=== PATIENT | female | born 1955 | race Caucasian/White ===

== ENCOUNTER 2025-02-19 04:17 | Inpatient (IN) | payer OTHER ==
[2025-02-19] VITALS (71 sets, daily range): BP systolic 44–218; BP diastolic 17–118
[~2025-02-19] VITALS: Ht 152.4 cm; Wt 89.8 kg
[2025-02-19] MEDS ORDERED: SODIUM CHLORIDE 0.9% 1,000 ML IV SCH ×2 (04:30→05:15)
[2025-02-19 04:42] LABS: ABG O2 SATURATION 88.6 % (94.0-98.0); ARTERIAL BLOOD GAS PH 7.497 (7.350-7.450); ARTERIAL BLOOD GAS PO2 64.7 mmHg (83.0-108.0)
[2025-02-19 04:44] LABS: ABG BASE EXCESS 3.6 mmol/L (-2.0-3.0)
[2025-02-19 04:50] LABS: BASO % 0.3 % (0.0-1.0); EOS % 0.5 % (1.0-4.0); HEMATOCRIT 31.8 % (37.0-47.0); MEAN CELL VOLUME 101.6 fl (81.0-99.0); MEAN CORPUSCULAR HGB 31.3 pg (27.0-31.0); MEAN CORPUSCULAR HGB CONC 30.8 g/dl (33.0-37.0); MEAN PLATELET VOLUME 11.3 fl (9.6-12.3); MONO # 0.8 10*3/uL (0.1-1.0); MONO % 8.8 % (3.0-9.0); NEUT # 6.2 10*3/uL (2.3-7.9); PLATELET COUNT AUTOMATED 71 10*3/uL (130-400); RED BLOOD COUNT 3.13 10*6/uL (4.10-5.10); RED CELL DISTRI WIDTH 21.1 % (0-14.5); WHITE BLOOD COUNT 8.9 10*3/uL (4.8-10.8)
[2025-02-19] MEDS ORDERED: PROPOFOL 100 ML IV ONE (04:52)
[2025-02-19 05:13] LABS: ALKALINE PHOSPHATASE 51 U/L (46-116); BUN 30 mg/dl (9-23); CHLORIDE 97 mmol/L (98-107); POTASSIUM 3.5 mmol/L (3.4-5.1); TOTAL PROTEIN 5.4 gm/dL (6.0-8.0)
[2025-02-19 05:15] LABS: SGPT/ALT < 7 U/L (5-49)
[2025-02-19] MEDS ORDERED: Piperacillin Sodium/Tazobact 50 ML IV ONE (05:35)
[2025-02-19] MEDS ORDERED: Vancomycin Hydrochloride 250 ML IV ONE (05:35)
[2025-02-19] MEDS ORDERED: NOREPINEPHRINE BITARTRATE/D5W 250 ML IV SCH ×2 (06:40→09:30)
[2025-02-19] MEDS ORDERED: Hydrocortisone Sodium Succin 100 MG/2 ML VIAL IV ONE (07:10)
[2025-02-19] MEDS ORDERED: FLUDROCORTISONE ACETATE 0.1 MG TAB PO ONE (07:10)
[2025-02-19] MEDS ORDERED: ETOMIDATE 20 MG/10 ML VIAL IV ONE (07:31)
[2025-02-19] MEDS ORDERED: ROCURONIUM BROMIDE 50 MG/5 ML SYRINGE IV ONE (07:31)
[2025-02-19] MEDS ORDERED: BISACODYL 10 MG SUPP R PRN (07:55)
[2025-02-19] MEDS ORDERED: Ondansetron Hydrochloride 4 MG/2 ML VIAL IV PRN (07:55)
[2025-02-19] MEDS ORDERED: ACETAMINOPHEN 325 MG TAB PO PRN (07:55)
[2025-02-19] MEDS ORDERED: TEMAZEPAM 15 MG CAP PO PRN (07:55)
[2025-02-19] MEDS ORDERED: Magnesium Hydroxide 30 ML UDC PO PRN (07:55)
[2025-02-19] MEDS ORDERED: BISACODYL 5 MG TAB PO PRN (07:55)
[2025-02-19] MEDS ORDERED: ACETAMINOPHEN 650 MG SUPP R PRN (07:55)
[2025-02-19] MEDS ORDERED: Vancomycin Hydrochloride 1,000 MG in SODIUM CHLORIDE 0.9% 250 ML IV SCH (08:05)
[2025-02-19] MEDS ORDERED: MAGNESIUM SULFATE 50 ML IV ONE (08:05)
[2025-02-19] MEDS ORDERED: Heparin Sodium/Sodium Chlori 500 ML IV ONE (09:43)
[2025-02-19] MEDS ORDERED: Enoxaparin Sodium 40 MG/0.4 ML SYR SC SCH (10:00)
[2025-02-19] MEDS ORDERED: Hydrocortisone Sodium Succin 100 MG/2 ML VIAL IV SCH ×2 (12:00→16:00)
[2025-02-19] MEDS ORDERED: Piperacillin Sodium/Tazobact 2.25 GM in SODIUM CHLORIDE 0.9% 50 ML IV SCH (12:00)
[2025-02-19] MEDS ORDERED: Midodrine Hydrochloride 5 MG TAB PO SCH (12:00)
[2025-02-19] MEDS ORDERED: VASOPRESSIN 100 ML IV SCH (12:30)
[2025-02-19 13:27] LABS: BILIRUBIN Negative (Negative); BLOOD Negative (Negative); CLARITY Clear (Clear); COLOR Dark Yellow (Yellow); GLUCOSE Negative (Negative); KETONE Trace (Negative); LEUKO ESTERASE Negative (Negative); NITRITE Negative (Negative)
[2025-02-19 13:37] LABS: BACTERIA 1+; CALCIUM OXALATE CRYSTALS Trace; MUCOUS TRACE; RBC 0-2 rbc/hpf (0-2); WBC 0-2 wbc/hpf (0-5)
[2025-02-19] MEDS ORDERED: PROTONIX40 MG PO (13:54)
[2025-02-19] MEDS ORDERED: SINGULAIR10 M1 PO (13:54)
[2025-02-19] MEDS ORDERED: ALLEGRA ALLERG180 M2 PO (13:55)
[2025-02-19] MEDS ORDERED: LEXAPRO10 MG PO (13:55)
[2025-02-19] MEDS ORDERED: NEURONTIN800 MG PO (13:56)
[2025-02-19] MEDS ORDERED: VITAMIN C1000 M5 PO (13:56)
[2025-02-19] MEDS ORDERED: MIRABEGRON ER50 MG PO (13:57)
[2025-02-19] MEDS ORDERED: WIXELA 250-501 EACH INH (13:58)
[2025-02-19] MEDS ORDERED: NOREPINEPHRINE BITARTRATE IV SCH (14:00)
[2025-02-19] MEDS ORDERED: DEXTROSE 5% IV SCH (14:00)
[2025-02-19] MEDS ORDERED: CELECOXIB200 M1 PO (14:00)
[2025-02-19] MEDS ORDERED: PLAQUENIL200 MG PO (14:01)
[2025-02-19 14:29] LABS: ABG O2 SATURATION 97.2 % (94.0-98.0); ARTERIAL BLOOD GAS PH 7.35 (7.350-7.450); ARTERIAL BLOOD GAS PO2 105.2 mmHg (83.0-108.0)
[2025-02-19 14:30] LABS: ABG BASE EXCESS -5.2 mmol/L (-2.0-3.0)
[2025-02-19] MEDS ORDERED: AZITHROMYCIN 250 ML IV SCH (14:30)
[2025-02-19] MEDS ORDERED: DEXTROSE 50% 25 GM/50 ML VIAL IV ONE ×2 (14:50→20:10)
[2025-02-19] MEDS ORDERED: Midazolam Hydrochloride 5 MG/5 ML VIAL ONE (15:32)
[2025-02-19] MEDS ORDERED: EPINEPHrine IN 0.9 % SOD CHLOR 250 ML IV SCH (16:05)
[2025-02-19] MEDS ORDERED: dexmedeTOMIDine IN 0.9 % NACL 100 ML IV SCH (19:20)
[2025-02-19] MEDS ORDERED: SODIUM CHLORIDE IV SCH (20:30)
[2025-02-19] MEDS ORDERED: EPINEPHRINE HYDROCHLORIDE IV SCH (20:30)
[2025-02-20] VITALS (96 sets, daily range): BP systolic 81–148; BP diastolic 37–81
[2025-02-20] MEDS ORDERED: [UNRECOGNIZED DRUG - OTHER] IV SCH (06:00)
[2025-02-20] MEDS ORDERED: methylPREDNISolone sod succ 40 MG VIAL IV SCH (06:00)
[2025-02-20] MEDS ORDERED: Pantoprazole Sodium 40 MG VIAL IV SCH (06:00)
[2025-02-20 06:14] LABS: ACT PARTIAL THROMBO TIME 47.6 SECONDS (20.0-32.1)
[2025-02-20 06:29] LABS: ALKALINE PHOSPHATASE 108 U/L (46-116); CHLORIDE 96 mmol/L (98-107); CHOLESTEROL 106 mg/dL (<200); FREE T4 0.18 ng/dl (0.89-1.76); HEMATOCRIT 32.5 % (37.0-47.0); MEAN CELL VOLUME 100.6 fl (81.0-99.0); MEAN CORPUSCULAR HGB 31.3 pg (27.0-31.0); MEAN CORPUSCULAR HGB CONC 31.1 g/dl (33.0-37.0); MEAN PLATELET VOLUME 11.2 fl (9.6-12.3); NUCLEATED RED BLOOD CELL 0.1 % (0.0-0.0); POTASSIUM 3.9 mmol/L (3.4-5.1); RED BLOOD COUNT 3.23 10*6/uL (4.10-5.10); RED CELL DISTRI WIDTH 21.1 % (0-14.5); SGPT/ALT 125 U/L (5-49); TRIGLYCERIDES 229 mg/dl (<150)
[2025-02-20 06:30] LABS: MANUAL DIFF REFLEX YES
[2025-02-20 06:31] LABS: PLATELET COUNT AUTOMATED 95 10*3/uL (130-400)
[2025-02-20 06:32] LABS: WHITE BLOOD COUNT 37.6 10*3/uL (4.8-10.8)
[2025-02-20 06:49] LABS: BUN 46 mg/dl (9-23); LDL CHOLESTEROL 55 mg/dL (9-159)
[2025-02-20 06:50] LABS: DOHLE BODIES FEW; OVALOCYTES FEW; PLATELET SUFFICIENCY LOW (NORMAL); POLYCHROMASIA SLIGHT; TOTAL CELLS COUNTED 100 #CELLS; TOXIC GRANULATION SLIGHT; VACUOLATION OF NEUTROPHILS SLIGHT
[2025-02-20 07:45] LABS: VITAMIN D, 25-HYDROXY 5.8 ng/mL (30-100)
[2025-02-20 07:57] LABS: ABG O2 SATURATION 99.9 % (94.0-98.0); ARTERIAL BLOOD GAS PH 7.338 (7.350-7.450); ARTERIAL BLOOD GAS PO2 197.1 mmHg (83.0-108.0)
[2025-02-20] MEDS ORDERED: Vancomycin Hydrochloride 1,000 MG in SODIUM CHLORIDE 0.9% 250 ML IV SCH (08:00)
[2025-02-20] MEDS ORDERED: Hydroxychloroquine Sulfate 200 MG TAB PO SCH (10:00)
[2025-02-20] MEDS ORDERED: ESCITALOPRAM OXALATE 10 MG TAB PO SCH (10:00)
[2025-02-20] MEDS ORDERED: FLUDROCORTISONE ACETATE 0.1 MG TAB PO SCH (10:00)
[2025-02-20] MEDS ORDERED: Enoxaparin Sodium 30 MG/0.3 ML SYR SC SCH (10:00)
[2025-02-20] MEDS ORDERED: DEXTROSE 50% 25 GM/50 ML VIAL IV PRN (14:15)
[2025-02-20] MEDS ORDERED: Heparin Sodium/Sodium Chlori 1,000 UNITS/500 ML BAG IV SCH (15:40)
[2025-02-20] MEDS ORDERED: ACETAMINOPHEN 70 ML IV ONE (21:20)
[2025-02-21] VITALS (91 sets, daily range): BP systolic 77–139; BP diastolic 45–68
[2025-02-21 04:50] LABS: HEMATOCRIT 25.5 % (37.0-47.0); MANUAL DIFF REFLEX YES; MEAN CORPUSCULAR HGB 31.3 pg (27.0-31.0); MEAN CORPUSCULAR HGB CONC 32.2 g/dl (33.0-37.0); MEAN PLATELET VOLUME 10.9 fl (9.6-12.3); RED BLOOD COUNT 2.62 10*6/uL (4.10-5.10); RED CELL DISTRI WIDTH 21.1 % (0-14.5); WHITE BLOOD COUNT 24.4 10*3/uL (4.8-10.8)
[2025-02-21 04:51] LABS: MEAN CELL VOLUME 97.3 fl (81.0-99.0); PLATELET COUNT AUTOMATED 65 10*3/uL (130-400)
[2025-02-21 05:12] LABS: POTASSIUM 4.2 mmol/L (3.4-5.1); TOTAL PROTEIN 4.4 gm/dL (6.0-8.0)
[2025-02-21 05:24] LABS: TOTAL CELLS COUNTED 100 #CELLS
[2025-02-21 05:25] LABS: OVALOCYTES FEW; PLATELET SUFFICIENCY LOW (NORMAL); POLYCHROMASIA SLIGHT
[2025-02-21 07:50] LABS: ABG BASE EXCESS -3.1 mmol/L (-2.0-3.0); ABG O2 SATURATION 98.8 % (94.0-98.0); ARTERIAL BLOOD GAS PH 7.418 (7.350-7.450); ARTERIAL BLOOD GAS PO2 122.8 mmHg (83.0-108.0)
[2025-02-21] MEDS ORDERED: Cefepime Hydrochloride 1 GM in SODIUM CHLORIDE 0.9% 50 ML IV SCH (10:00)
[2025-02-21 10:07] LABS: HEMOGOLBIN A1C 4.2 % (4.8-5.6)
[2025-02-21] MEDS ORDERED: ALBUMIN 25% 100 ML IV ONE ×2 (10:45→22:45)
[2025-02-21 11:04] LABS: BILIRUBIN Negative (Negative); BLOOD Negative (Negative); CLARITY Cloudy (Clear); COLOR Dark Yellow (Yellow); GLUCOSE Negative (Negative); KETONE Negative (Negative); LEUKO ESTERASE Trace (Negative); NITRITE Negative (Negative); PH 5.5 (4.5-8.0); SPECIFIC GRAVITY 1.015 (1.001-1.030)
[2025-02-21 11:41] LABS: HYALINE CAST 0-2
[2025-02-21 11:42] LABS: BACTERIA 3+
[2025-02-21] MEDS ORDERED: Midodrine Hydrochloride 5 MG TAB PO SCH (14:00)
[2025-02-21] MEDS ORDERED: Heparin Sodium/Sodium Chlori 1,000 UNITS/500 ML BAG IV SCH (17:05)
[2025-02-22] VITALS (90 sets, daily range): BP systolic 88–121; BP diastolic 42–61
[2025-02-22] MEDS ORDERED: Hydrocortisone Sodium Succin 100 MG/2 ML VIAL IV SCH
[2025-02-22 05:50] LABS: FREE T4 0.14 ng/dl (0.89-1.76); POTASSIUM 3.8 mmol/L (3.4-5.1); TOTAL PROTEIN 4.8 gm/dL (6.0-8.0)
[2025-02-22 06:07] LABS: MEAN CELL VOLUME 96.9 fl (81.0-99.0); MEAN CORPUSCULAR HGB 30.8 pg (27.0-31.0); MEAN CORPUSCULAR HGB CONC 31.8 g/dl (33.0-37.0); MEAN PLATELET VOLUME 11.1 fl (9.6-12.3); PLATELET COUNT AUTOMATED 49 10*3/uL (130-400); RED BLOOD COUNT 2.27 10*6/uL (4.10-5.10); RED CELL DISTRI WIDTH 20.7 % (0-14.5); WHITE BLOOD COUNT 23.1 10*3/uL (4.8-10.8)
[2025-02-22 06:59] LABS: MANUAL DIFF REFLEX YES
[2025-02-22 07:01] LABS: TOTAL CELLS COUNTED 100 #CELLS
[2025-02-22 07:03] LABS: PLATELET SUFFICIENCY LOW (NORMAL); POLYCHROMASIA SLIGHT; SCHISTOCYTES FEW; TOXIC GRANULATION SLIGHT
[2025-02-22 08:10] LABS: ABG O2 SATURATION 99.1 % (94.0-98.0); ARTERIAL BLOOD GAS PH 7.426 (7.350-7.450)
[2025-02-22 08:11] LABS: ABG BASE EXCESS -2.4 mmol/L (-2.0-3.0)
[2025-02-22] MEDS ORDERED: VANCOMYCIN/WATER FOR INJ (PEG) 300 ML IV SCH (10:00)
[2025-02-22 11:47] LABS: ABG BASE EXCESS 0.6 mmol/L (-2.0-3.0); ARTERIAL BLOOD GAS PH 7.44 (7.350-7.450); ARTERIAL BLOOD GAS PO2 94.3 mmHg (83.0-108.0)
[2025-02-22] MEDS ORDERED: SODIUM CHLORIDE 0.9% 500 ML IV ONE (14:30)
[2025-02-22] MEDS ORDERED: DICLOFENAC SODIUM 100 GM TUBE T SCH (22:00)
[2025-02-23] VITALS (96 sets, daily range): BP systolic 97–127; BP diastolic 43–62
[2025-02-23] MEDS ORDERED: hydrOXYzine pamoate 25 MG CAP PO ONE (03:25)
[2025-02-23 04:27] LABS: MEAN CELL VOLUME 95.3 fl (81.0-99.0); RED CELL DISTRI WIDTH 20.9 % (0-14.5)
[2025-02-23 04:34] LABS: HEMATOCRIT 26.4 % (37.0-47.0); MEAN CORPUSCULAR HGB 30.3 pg (27.0-31.0); MEAN CORPUSCULAR HGB CONC 31.8 g/dl (33.0-37.0); MEAN PLATELET VOLUME 12.6 fl (9.6-12.3); NUCLEATED RED BLOOD CELL 0.1 % (0.0-0.0); PLATELET COUNT AUTOMATED 41 10*3/uL (130-400); RED BLOOD COUNT 2.77 10*6/uL (4.10-5.10); WHITE BLOOD COUNT 19.7 10*3/uL (4.8-10.8)
[2025-02-23 05:00] LABS: ALKALINE PHOSPHATASE 110 U/L (46-116); BUN 49 mg/dl (9-23); CHLORIDE 101 mmol/L (98-107); POTASSIUM 3.6 mmol/L (3.4-5.1); SGPT/ALT 129 U/L (5-49); TOTAL PROTEIN 4.7 gm/dL (6.0-8.0)
[2025-02-23 05:02] LABS: MANUAL DIFF REFLEX YES
[2025-02-23 05:04] LABS: PLATELET SUFFICIENCY LOW (NORMAL); TOTAL CELLS COUNTED 100 #CELLS
[2025-02-23] MEDS ORDERED: Cefepime Hydrochloride 2 GM in SODIUM CHLORIDE 0.9% 50 ML IV SCH (10:10)
[2025-02-24] VITALS (26 sets, daily range): BP systolic 98–124; BP diastolic 46–64
[2025-02-24 06:11] LABS: HEMATOCRIT 26.8 % (37.0-47.0); MEAN CORPUSCULAR HGB 30.5 pg (27.0-31.0); MEAN PLATELET VOLUME 11.6 fl (9.6-12.3); RED BLOOD COUNT 2.72 10*6/uL (4.10-5.10); WHITE BLOOD COUNT 6.6 10*3/uL (4.8-10.8)
[2025-02-24 06:36] LABS: MEAN CELL VOLUME 98.5 fl (81.0-99.0)
[2025-02-24 06:50] LABS: PLATELET COUNT AUTOMATED 32 10*3/uL (130-400)
[2025-02-24 06:51] LABS: MANUAL DIFF REFLEX YES
[2025-02-24 06:57] LABS: TOTAL CELLS COUNTED 100 #CELLS
[2025-02-24 06:58] LABS: POLYCHROMASIA SLIGHT
[2025-02-24 07:00] LABS: PLATELET SUFFICIENCY LOW (NORMAL)
[2025-02-24 07:01] LABS: ALKALINE PHOSPHATASE 84 U/L (46-116); BUN 43 mg/dl (9-23); CHLORIDE 105 mmol/L (98-107); FREE T4 0.18 ng/dl (0.89-1.76); POTASSIUM 3.4 mmol/L (3.4-5.1); SGPT/ALT 73 U/L (5-49); TOTAL PROTEIN 4.5 gm/dL (6.0-8.0)
[2025-02-24] MEDS ORDERED: DISPOSABLE IV SCH (08:00)
[2025-02-24] MEDS ORDERED: [UNRECOGNIZED DRUG - OTHER] IV SCH (08:00)
[2025-02-24] MEDS ORDERED: Enoxaparin Sodium 40 MG/0.4 ML SYR SC SCH (10:00)
[2025-02-25] VITALS: BP 95/58
[2025-02-25] MEDS ORDERED: CEFDINIR300 MG PO (02:03)
[2025-02-25 04:00] VITALS: BP 111/53
[2025-02-25 04:37] LABS: MEAN CELL VOLUME 98.6 fl (81.0-99.0); MEAN CORPUSCULAR HGB CONC 31.4 g/dl (33.0-37.0); MEAN PLATELET VOLUME 12.2 fl (9.6-12.3); NUCLEATED RED BLOOD CELL 0.3 % (0.0-0.0); PLATELET COUNT AUTOMATED 34 10*3/uL (130-400); RED BLOOD COUNT 2.94 10*6/uL (4.10-5.10); RED CELL DISTRI WIDTH 20.9 % (0-14.5); WHITE BLOOD COUNT 7.6 10*3/uL (4.8-10.8)
[2025-02-25 04:58] LABS: ALKALINE PHOSPHATASE 90 U/L (46-116); BUN 47 mg/dl (9-23); CHLORIDE 105 mmol/L (98-107); POTASSIUM 3.4 mmol/L (3.4-5.1); SGPT/ALT 49 U/L (5-49); TOTAL PROTEIN 4.5 gm/dL (6.0-8.0)
[2025-02-25 05:22] LABS: MANUAL DIFF REFLEX YES
[2025-02-25 05:26] LABS: PLATELET SUFFICIENCY LOW (NORMAL); TOTAL CELLS COUNTED 100 #CELLS
[2025-02-25 05:27] LABS: OVALOCYTES FEW; POLYCHROMASIA SLIGHT
[2025-02-25 08:00] VITALS: BP 115/58
[2025-02-25 12:00] VITALS: BP 113/63
[2025-02-25] MEDS ORDERED: SODIUM CHLORIDE 0.9% 1,000 ML IV SCH (12:05)
[2025-02-25 16:00] VITALS: BP 116/59
[2025-02-25 19:57] VITALS: BP 118/65
[2025-02-26] VITALS: BP 112/56
[2025-02-26 04:00] VITALS: BP 107/52
[2025-02-26 05:58] LABS: POTASSIUM 3.6 mmol/L (3.4-5.1); TOTAL PROTEIN 4.5 gm/dL (6.0-8.0)
[2025-02-26 06:12] LABS: HEMATOCRIT 31.8 % (37.0-47.0); MEAN CORPUSCULAR HGB 30.8 pg (27.0-31.0); MEAN CORPUSCULAR HGB CONC 30.8 g/dl (33.0-37.0); MEAN PLATELET VOLUME 13.6 fl (9.6-12.3); NUCLEATED RED BLOOD CELL 0.2 % (0.0-0.0); PLATELET COUNT AUTOMATED 37 10*3/uL (130-400); RED BLOOD COUNT 3.18 10*6/uL (4.10-5.10); WHITE BLOOD COUNT 8.1 10*3/uL (4.8-10.8)
[2025-02-26 07:32] LABS: MANUAL DIFF REFLEX YES
[2025-02-26 07:34] LABS: PLATELET SUFFICIENCY LOW (NORMAL); POLYCHROMASIA SLIGHT; TOTAL CELLS COUNTED 100 #CELLS; TOXIC GRANULATION SLIGHT
[2025-02-26 07:35] LABS: OVALOCYTES FEW
[2025-02-26 08:00] VITALS: BP 129/68
[2025-02-26 12:00] VITALS: BP 121/60
[2025-02-26] MEDS ORDERED: SODIUM CHLORIDE 0.9% 1,000 ML IV SCH (13:00)
[2025-02-26] MEDS ORDERED: ALBUMIN 5% 250 ML IV ONE (14:00)
[2025-02-26 16:00] VITALS: BP 105/50
[2025-02-26 20:00] VITALS: BP 115/61
[2025-02-27] VITALS: BP 114/80
[2025-02-27 04:00] VITALS: BP 122/58
[2025-02-27 05:29] LABS: POTASSIUM 3.7 mmol/L (3.4-5.1); TOTAL PROTEIN 4.4 gm/dL (6.0-8.0)
[2025-02-27] MEDS ORDERED: ALBUMIN 5% 250 ML IV ONE (06:00)
[2025-02-27 06:22] LABS: HEMATOCRIT 33.2 % (37.0-47.0); MEAN CELL VOLUME 99.4 fl (81.0-99.0); MEAN CORPUSCULAR HGB 30.5 pg (27.0-31.0); MEAN CORPUSCULAR HGB CONC 30.7 g/dl (33.0-37.0); NUCLEATED RED BLOOD CELL 0.2 % (0.0-0.0); PLATELET COUNT AUTOMATED 39 10*3/uL (130-400); RED BLOOD COUNT 3.34 10*6/uL (4.10-5.10); RED CELL DISTRI WIDTH 21.4 % (0-14.5); WHITE BLOOD COUNT 10.8 10*3/uL (4.8-10.8)
[2025-02-27 06:54] LABS: MANUAL DIFF REFLEX YES
[2025-02-27 07:00] LABS: PLATELET SUFFICIENCY LOW (NORMAL); TOTAL CELLS COUNTED 100 #CELLS
[2025-02-27 07:01] LABS: TOXIC GRANULATION MODERATE; VACUOLATION OF NEUTROPHILS SLIGHT
[2025-02-27 08:00] VITALS: BP 141/78
[2025-02-27 11:58] VITALS: BP 137/72
[2025-02-27 16:00] VITALS: BP 127/74
[2025-02-27] MEDS ORDERED: SODIUM CHLORIDE 0.9% 1,000 ML IV ONE (16:55)
[2025-02-27 20:00] VITALS: BP 139/64
[2025-02-28] VITALS: BP 131/57
[2025-02-28 05:07] LABS: POTASSIUM 3.6 mmol/L (3.4-5.1); TOTAL PROTEIN 4.3 gm/dL (6.0-8.0)
[2025-02-28 06:05] LABS: HEMATOCRIT 33.8 % (37.0-47.0); MEAN CELL VOLUME 100.3 fl (81.0-99.0); MEAN CORPUSCULAR HGB 30.6 pg (27.0-31.0); MEAN CORPUSCULAR HGB CONC 30.5 g/dl (33.0-37.0); MEAN PLATELET VOLUME 13.1 fl (9.6-12.3); NUCLEATED RED BLOOD CELL 0.2 % (0.0-0.0); PLATELET COUNT AUTOMATED 40 10*3/uL (130-400); RED BLOOD COUNT 3.37 10*6/uL (4.10-5.10); RED CELL DISTRI WIDTH 22.3 % (0-14.5); WHITE BLOOD COUNT 13.3 10*3/uL (4.8-10.8)
[2025-02-28 07:01] LABS: MANUAL DIFF REFLEX YES
[2025-02-28 07:03] LABS: TOTAL CELLS COUNTED 100 #CELLS
[2025-02-28 07:05] LABS: PLATELET SUFFICIENCY LOW (NORMAL); TOXIC GRANULATION SLIGHT
[2025-02-28 08:00] VITALS: BP 124/67
[2025-02-28] MEDS ORDERED: Albuterol Sulf/Ipratropium 3 ML VIAL NEB ONE (08:30)
[2025-02-28] MEDS ORDERED: Water, Sterile 10 ML VIAL IV SCH (08:51)
[2025-02-28 10:49] LABS: ABG BASE EXCESS -4.2 mmol/L (-2.0-3.0); ABG O2 SATURATION 90.6 % (94.0-98.0); ARTERIAL BLOOD GAS PH 7.477 (7.350-7.450); ARTERIAL BLOOD GAS PO2 57.2 mmHg (83.0-108.0)
[2025-02-28 12:00] VITALS: BP 104/59
[2025-02-28] MEDS ORDERED: Heparin Sodium/Sodium Chlori 500 ML IV ONE (15:09)
[2025-02-28 16:00] VITALS: BP 94/54
[2025-02-28 17:07] LABS: A/G RATIO 0.8 (0.7-1.7); ALPHA-1-GLOBULIN 0.2 g/dL (0.0-0.4); ALPHA-2-GLOBULIN 0.5 g/dL (0.4-1.0); BETA GLOBULIN 0.7 g/dL (0.7-1.3); GLOBULIN, TOTAL 2.5 g/dL (2.2-3.9)
[2025-02-28] MEDS ORDERED: Thiamine 200 MG/2 ML VIAL IV SCH ×2 (18:00→18:13)
[2025-02-28 23:00] VITALS: BP 105/60
[2025-02-28] MEDS ORDERED: cefTRIAXone Sodium 2 GM in SYRINGE INFUSION 20 ML IV SCH (23:25)
[2025-03-01 03:00] VITALS: BP 115/64
[2025-03-01 06:30] LABS: POTASSIUM 4.2 mmol/L (3.4-5.1); TOTAL PROTEIN 4.2 gm/dL (6.0-8.0)
[2025-03-01 06:35] LABS: HEMATOCRIT 34.8 % (37.0-47.0); MEAN CELL VOLUME 101.5 fl (81.0-99.0); MEAN CORPUSCULAR HGB 31.2 pg (27.0-31.0); MEAN CORPUSCULAR HGB CONC 30.7 g/dl (33.0-37.0); NUCLEATED RED BLOOD CELL 0.1 10*3/uL (0.0-0.0); NUCLEATED RED BLOOD CELL 0.3 % (0.0-0.0); PLATELET COUNT AUTOMATED 40 10*3/uL (130-400); RED BLOOD COUNT 3.43 10*6/uL (4.10-5.10); RED CELL DISTRI WIDTH 23.1 % (0-14.5); WHITE BLOOD COUNT 17.9 10*3/uL (4.8-10.8)
[2025-03-01 06:40] LABS: MANUAL DIFF REFLEX YES
[2025-03-01 07:05] LABS: BASOPHILS 1 % (0-1); OVALOCYTES FEW; POLYCHROMASIA SLIGHT; ROULEAUX SLIGHT; TOTAL CELLS COUNTED 100 #CELLS; TOXIC GRANULATION SLIGHT
[2025-03-01 07:06] LABS: PLATELET SUFFICIENCY LOW (NORMAL)
[2025-03-01] MEDS ORDERED: MULTIVITAMIN 1 TAB TAB PO SCH (10:00)
[2025-03-01] MEDS ORDERED: FUROSEMIDE 40 MG/4 ML VIAL IV ONE (10:30)
[2025-03-01] MEDS ORDERED: INFUSION IV SCH (11:00)
[2025-03-01] MEDS ORDERED: FUROSEMIDE IV SCH (11:00)
[2025-03-01 12:00] VITALS: BP 110/49
[2025-03-01 16:00] VITALS: BP 103/62
[2025-03-01 20:00] VITALS: BP 114/61
[2025-03-01 23:24] LABS: BILIRUBIN Negative (Negative); BLOOD Negative (Negative); CLARITY Turbid (Clear); COLOR Dark Yellow (Yellow); GLUCOSE Negative (Negative); KETONE Trace (Negative); LEUKO ESTERASE Negative (Negative); NITRITE Negative (Negative); SPECIFIC GRAVITY 1.015 (1.001-1.030); UROBILINOGEN 0.2 E.U./dl (0.0-1.0)
[2025-03-01 23:40] LABS: BACTERIA 2+
[2025-03-02] VITALS (13 sets, daily range): BP systolic 77–111; BP diastolic 27–66
[2025-03-02 04:53] LABS: HEMATOCRIT 38.3 % (37.0-47.0); MEAN CELL VOLUME 101.9 fl (81.0-99.0); MEAN CORPUSCULAR HGB 31.4 pg (27.0-31.0); MEAN CORPUSCULAR HGB CONC 30.8 g/dl (33.0-37.0); NUCLEATED RED BLOOD CELL 0.1 10*3/uL (0.0-0.0); NUCLEATED RED BLOOD CELL 0.3 % (0.0-0.0); PLATELET COUNT AUTOMATED 41 10*3/uL (130-400); RED BLOOD COUNT 3.76 10*6/uL (4.10-5.10); RED CELL DISTRI WIDTH 24.1 % (0-14.5); WHITE BLOOD COUNT 24.6 10*3/uL (4.8-10.8)
[2025-03-02 04:54] LABS: MANUAL DIFF REFLEX YES
[2025-03-02 05:10] LABS: POTASSIUM 4.7 mmol/L (3.4-5.1); TOTAL PROTEIN 4.4 gm/dL (6.0-8.0)
[2025-03-02 05:18] LABS: BURR CELLS FEW; PLATELET SUFFICIENCY LOW (NORMAL); POLYCHROMASIA SLIGHT; TOTAL CELLS COUNTED 100 #CELLS
[2025-03-02 05:19] LABS: ROULEAUX SLIGHT
[2025-03-02 05:20] LABS: TOXIC GRANULATION SLIGHT
[2025-03-02] MEDS ORDERED: NOREPINEPHRINE BITARTRATE/D5W 250 ML IV SCH (07:30)
[2025-03-02 08:10] LABS: ABG BASE EXCESS -13.2 mmol/L (-2.0-3.0); ABG O2 SATURATION 91.7 % (94.0-98.0); ARTERIAL BLOOD GAS PH 7.264 (7.350-7.450); ARTERIAL BLOOD GAS PO2 68.2 mmHg (83.0-108.0)
[2025-03-02] MEDS ORDERED: MIDODRINE HCL5 M1 PO (10:17)
[2025-03-02] MEDS ORDERED: NOREPINEPH4 MG/2505 IV (10:17)
[2025-03-02] MEDS ORDERED: FUROSEMIDE IV (10:17)
[2025-03-02] MEDS ORDERED: Hydrocortisone Sodium Succin 100 MG/2 ML VIAL IV SCH (16:00)
== END 2025-03-02 11:05 | disposition short-term general hospital (02) | DRG 871 ==
LOC: ED 04:17 → ICCU 07:18 → EDHOLD 07:18 → ICCU 08:01
PROVIDERS: Internal Medicine; Internal Medicine Critical Care Medicine; Internal Medicine Infectious Disease; Physician Assistant; Student in an Organized Health Care Education/Training Program; ADMIT Internal Medicine; ATTEND Internal Medicine
PROC: 0BH17EZ Insertion of Endotracheal Airway into Trachea, Via Natural or Artificial Opening (ICD-10-PCS; principal; 2025-02-19)
PROC: 5A1945Z Respiratory Ventilation, 24-96 Consecutive Hours (ICD-10-PCS; 2025-02-19)
PROC: 02HV33Z Insertion of Infusion Device into Superior Vena Cava, Percutaneous Approach (ICD-10-PCS; 2025-02-19)
PROC: B548ZZA Ultrasonography of Superior Vena Cava, Guidance (ICD-10-PCS; 2025-02-19)
PROC: 03HY32Z Insertion of Monitoring Device into Upper Artery, Percutaneous Approach (ICD-10-PCS; 2025-02-19)
PROC: 30233N1 Transfusion of Nonautologous Red Blood Cells into Peripheral Vein, Percutaneous Approach (ICD-10-PCS; 2025-02-22)
DX: A41.9 Sepsis, unspecified organism (principal); E43 Unspecified severe protein-calorie malnutrition; J15.69 Pneumonia due to other Gram-negative bacteria; R65.21 Severe sepsis with septic shock; N17.0 Acute kidney failure with tubular necrosis; J80 Acute respiratory distress syndrome; K72.00 Acute and subacute hepatic failure without coma; J15.0 Pneumonia due to Klebsiella pneumoniae; E27.2 Addisonian crisis; E87.1 Hypo-osmolality and hyponatremia; E87.20 Acidosis, unspecified; D53.9 Nutritional anemia, unspecified; D75.839 Thrombocytosis, unspecified; E16.2 Hypoglycemia, unspecified; E83.42 Hypomagnesemia; R74.01 Elevation of levels of liver transaminase levels; K76.0 Fatty (change of) liver, not elsewhere classified; D35.01 Benign neoplasm of right adrenal gland; D35.02 Benign neoplasm of left adrenal gland; D47.2 Monoclonal gammopathy; M35.00 Sjogren syndrome, unspecified; I10 Essential (primary) hypertension; D75.829 Heparin-induced thrombocytopenia, unspecified; M06.8A Other specified rheumatoid arthritis, other specified site; E66.01 Morbid (severe) obesity due to excess calories; J45.909 Unspecified asthma, uncomplicated; Z96.652 Presence of left artificial knee joint; Z90.49 Acquired absence of other specified parts of digestive tract; Z90.710 Acquired absence of both cervix and uterus; Z79.899 Other long term (current) drug therapy; Z79.01 Long term (current) use of anticoagulants; Z79.2 Long term (current) use of antibiotics; Z68.38 Body mass index [BMI] 38.0-38.9, adult

== ENCOUNTER 2025-03-02 12:28 | Emergency (ER) | payer OTHER ==
[~2025-03-02] VITALS: Ht 165.1 cm; Wt 96.2 kg
[~2025-03-02 12:28] MED LIST: ALLEGRA ALLERG180 M2 PO; CEFDINIR300 MG PO; CELECOXIB200 M1 PO; FUROSEMIDE IV; LEXAPRO10 MG PO; MIDODRINE HCL5 M1 PO; MIRABEGRON ER50 MG PO; NEURONTIN800 MG PO; NOREPINEPH4 MG/2505 IV; PLAQUENIL200 MG PO; PROTONIX40 MG PO; SINGULAIR10 M1 PO; VITAMIN C1000 M5 PO; WIXELA 250-501 EACH INH
== END 2025-03-02 12:35 ==
LOC: ED 12:28
DX: I46.9 Cardiac arrest, cause unspecified (principal); M06.9 Rheumatoid arthritis, unspecified; J45.909 Unspecified asthma, uncomplicated; Z90.49 Acquired absence of other specified parts of digestive tract; Z79.899 Other long term (current) drug therapy; Z90.710 Acquired absence of both cervix and uterus; Z96.652 Presence of left artificial knee joint